=== PATIENT | male | born 1955 | race Caucasian/White ===

== ENCOUNTER 2022-06-28 10:25 | Outpatient (RCR) | payer MEDICARE, OTHER | END 2022-07-07 | LOC: ONC 10:25 | PROVIDERS: ATTEND Radiology Radiation Oncology | DX: C61 Malignant neoplasm of prostate (principal); E78.00 Pure hypercholesterolemia, unspecified; I10 Essential (primary) hypertension | CPT/HCPCS: 99205 ==